=== PATIENT | female | born 1985 | race Caucasian/White ===

== ENCOUNTER 2018-02-16 09:13 | Inpatient (IN) | payer MEDICAID ==
[2018-02-16 10:38] LABS: ADD MAN DIFF? NO
[2018-02-16 10:43] LABS: WHITE BLOOD COUNT 17.2 10^3/ul (4.8-10.8)
[2018-02-16 10:43] LABS: BASOPHILS % 0.2 % (0.0-2.0); EOSINOPHILS % 0.1 % (0.0-7.0); HEMATOCRIT 38.2 % (37.0-47.0); HEMOGLOBIN 12.8 g/dl (12.0-16.0); LYMPHOCYTES # 1.6 10^3/ul (0.8-2.9); LYMPHOCYTES % 9.4 % (15.0-51.0); MEAN CORPUSCULAR HEMOGLOBIN 29.8 pg (29.0-33.0); MEAN CORPUSCULAR HGB CONC 33.5 g/dl (32.0-37.0); MEAN CORPUSCULAR VOLUME 88.8 fl (82.0-101.0); MEAN PLATELET VOLUME 10.9 fl (7.4-10.4); MONOCYTE # 0.9 10^3/ul (0.3-0.9); MONOCYTES % 5.1 % (0.0-11.0); NEUTROPHIL # 14.6 10^3/ul (1.6-7.5); NEUTROPHILS % 84.6 % (39.0-77.0); PLATELET COUNT 213 10^3/UL (140-415)
[2018-02-16] MEDS: SOD CHLORIDE 0.9% 1,000 ML IV (10:52)
[2018-02-16 10:53] LABS: ADD UMIC YES; UR ASCORBIC ACID 40 mg/dL (NEGATIVE); UR BACTERIA FEW /HPF (NONE SEEN); UR BILIRUBIN (Dip) NEGATIVE (NEGATIVE); UR BLOOD (Dip) NEGATIVE (NEGATIVE); UR CLARITY CLOUDY (CLEAR); UR COLOR YELLOW (YELLOW); UR GLUCOSE (Dip) NEGATIVE (NEGATIVE); UR KETONES (Dip) TRACE mg/dL (NEGATIVE); UR LEUKOCYTE ESTERASE (Dip) NEGATIVE Leu/ul (NEGATIVE); UR MUCUS FEW /HPF (NONE SEEN); UR NITRITE (Dip) NEGATIVE (NEGATIVE); UR RBC 2 /HPF (0-5); UR SPECIFIC GRAVITY (Dip) 1.023 (1.003-1.030); UR SQUAMOUS EPITHELIAL CELL FEW /HPF (FEW); UR TOTAL PROTEIN (Dip) NEGATIVE (NEGATIVE); UR UROBILINOGEN (Dip) NEGATIVE (NEGATIVE); UR WBC 3 /HPF (0-5)
[2018-02-16] MEDS: ACETAMINOPHEN 500 MG TAB PO ×2 (10:56→11:00)
[2018-02-16] MEDS ORDERED: ONDANSETRON 4 MG INJ IV ×2 (12:30→23:00)
[2018-02-16] MEDS ORDERED: ACETAMINOPHEN 325 MG TAB PO (12:30)
[2018-02-16] MEDS ORDERED: NACL 0.9% 3 ML SYG IV (15:30)
[2018-02-16] MEDS ORDERED: ZOLPIDEM 5 MG TAB PO (15:30)
[2018-02-16] MEDS: HYDROCODONE/APAP (5/325) TAB PO (16:15)
[2018-02-16 19:46] LABS: ADD MAN DIFF? NO
[2018-02-16 19:47] LABS: BASOPHILS % 0.3 % (0.0-2.0); HEMATOCRIT 29.4 % (37.0-47.0); HEMOGLOBIN 9.8 g/dl (12.0-16.0); LYMPHOCYTES # 1.5 10^3/ul (0.8-2.9); LYMPHOCYTES % 13.7 % (15.0-51.0); MEAN CORPUSCULAR HEMOGLOBIN 29.6 pg (29.0-33.0); MEAN CORPUSCULAR HGB CONC 33.3 g/dl (32.0-37.0); MEAN CORPUSCULAR VOLUME 88.8 fl (82.0-101.0); MEAN PLATELET VOLUME 10.5 fl (7.4-10.4); MONOCYTE # 0.8 10^3/ul (0.3-0.9); MONOCYTES % 7.4 % (0.0-11.0); NEUTROPHIL # 8.3 10^3/ul (1.6-7.5); NEUTROPHILS % 78.1 % (39.0-77.0); PLATELET COUNT 175 10^3/UL (140-415); RED BLOOD COUNT 3.31 10^6/ul (4.20-5.40); RED CELL DISTRIBUTION WIDTH 13.1 % (11.5-14.5)
[2018-02-16 19:47] LABS: WHITE BLOOD COUNT 10.7 10^3/ul (4.8-10.8)
[2018-02-16] MEDS: 1/2 NS + KCL 20 MEQ 1,000 ML IV ×2 (19:47→23:19)
[2018-02-16] MEDS ORDERED: METHYLENE BLUE 1% 10 ML INJ (21:04)
[2018-02-16] MEDS ORDERED: PROPOFOL 20 ML (21:10)
[2018-02-16] MEDS ORDERED: MIDAZOLAM 1 MG/ML 2 ML INJ (21:10)
[2018-02-16] MEDS ORDERED: ROPIVACAINE 0.2% 20 ML VIAL (21:10)
[2018-02-16] MEDS ORDERED: CEFAZOLIN 1 GM INJ (21:10)
[2018-02-16] MEDS ORDERED: ROCURONIUM 50 MG INJ (21:10)
[2018-02-16] MEDS ORDERED: FENTAnyl 50 MCG/ML VIAL (21:10)
[2018-02-16] MEDS ORDERED: METOCLOPRAMIDE 10 MG INJ IV ×2 (21:30→23:00)
[2018-02-16] MEDS ORDERED: ALBUMIN HUMAN 5% 250 ML IV (21:30)
[2018-02-16] MEDS ORDERED: FENTAnyl 50 MCG/ML VIAL IV ×3 (21:30)
[2018-02-16] MEDS ORDERED: HYDROmorphONE (0.2 MG/ML) 10ML SYG IV ×3 (21:30)
[2018-02-16] MEDS ORDERED: DIPHENHYDRAMINE 50 MG INJ IV (21:30)
[2018-02-16] MEDS ORDERED: EPHEDrine SULFATE 50 MG/5 ML SYG IV (21:30)
[2018-02-16] MEDS ORDERED: METOCLOPRAMIDE 10 MG INJ (21:44)
[2018-02-16] MEDS ORDERED: DEXAMETHASONE 4 MG/ML 1 ML INJ (21:44)
[2018-02-16] MEDS ORDERED: ONDANSETRON 4 MG INJ (21:44)
[2018-02-16] MEDS ORDERED: PHENYLephrine (100 MCG/ML) 5ML SYG (21:44)
[2018-02-16] MEDS ORDERED: ACETAMINOPHEN 1000MG/100ML IV 100 ML (21:44)
[2018-02-16] MEDS ORDERED: SUGAMMADEX SODIUM 200 MG/2 ML VIAL IV (21:44)
[2018-02-16] MEDS ORDERED: KETOROLAC 30 MG INJ (22:11)
[2018-02-16] MEDS: BUPIVACAINE 0.25% (MPF) 30 ML INJ (22:12)
[2018-02-16] MEDS: MEPERIDINE 25 MG INJ IV ×2 (22:29→23:43)
[2018-02-16] MEDS: ONDANSETRON 4 MG INJ IV (22:49)
[2018-02-16] MEDS ORDERED: HYDROCODONE/APAP (5/325) TAB PO (23:00)
[2018-02-16] MEDS ORDERED: KETOROLAC 30 MG INJ IV (23:00)
[2018-02-16] MEDS ORDERED: morphine 2 MG INJ IV (23:00)
[2018-02-17 05:49] LABS: ADD MAN DIFF? NO
[2018-02-17] MEDS: 1/2 NS + KCL 20 MEQ 1,000 ML IV (05:49)
[2018-02-17 06:12] LABS: BASOPHILS % 0.1 % (0.0-2.0); HEMATOCRIT 25.3 % (37.0-47.0); HEMOGLOBIN 8.6 g/dl (12.0-16.0); LYMPHOCYTES # 0.6 10^3/ul (0.8-2.9); LYMPHOCYTES % 8.7 % (15.0-51.0); MEAN CORPUSCULAR HEMOGLOBIN 30.3 pg (29.0-33.0); MEAN CORPUSCULAR VOLUME 89.1 fl (82.0-101.0); MEAN PLATELET VOLUME 11.6 fl (7.4-10.4); MONOCYTE # 0.3 10^3/ul (0.3-0.9); NEUTROPHIL # 6.3 10^3/ul (1.6-7.5); NEUTROPHILS % 86.8 % (39.0-77.0); PLATELET COUNT 149 10^3/UL (140-415); RED BLOOD COUNT 2.84 10^6/ul (4.20-5.40); RED CELL DISTRIBUTION WIDTH 13.2 % (11.5-14.5)
[2018-02-17 06:12] LABS: WHITE BLOOD COUNT 7.3 10^3/ul (4.8-10.8)
[2018-02-17] MEDS: HYDROCODONE/APAP (5/325) TAB PO (09:41)
== END 2018-02-17 15:20 | disposition home or self-care (01) | DRG 777 ==
LOC: FTE 09:13 → MS1 12:05
PROC: 0UT54ZZ Resection of Right Fallopian Tube, Percutaneous Endoscopic Approach (ICD-10-PCS; principal; 2018-02-16 21:20)
PROC: 10T24ZZ Resection of Products of Conception, Ectopic, Percutaneous Endoscopic Approach (ICD-10-PCS; 2018-02-16 21:20)
PROC: 0W9G4ZZ Drainage of Peritoneal Cavity, Percutaneous Endoscopic Approach (ICD-10-PCS; 2018-02-16 21:20)
DX: O00.101 Right tubal pregnancy without intrauterine pregnancy (principal); K66.1 Hemoperitoneum
CPT/HCPCS: 36415; 72195; 74181; 76801; 76817; 81001; 84702; 85025; 86850; 86900; 86901; 88305; 99285-25